=== PATIENT | female | born 1985 | race Caucasian/White ===

== ENCOUNTER 2019-07-16 09:45 | Emergency (ER) | payer OTHER ==
[~2019-07-16] VITALS: Ht 170.2 cm; Wt 68.5 kg
[2019-07-16 10:36] LABS: BASO % 0 % (0-3); EOS # 0.2 x10^3/uL (0.0-0.7); EOS % 3 % (0-3); HEMATOCRIT 36.8 % (36.0-47.0); HEMOGLOBIN 12.4 g/dL (12.0-15.5); LYMPH # 1.4 x10^3/uL (1.0-4.8); LYMPH % 25 % (24-48); MEAN CORPUSCULAR HEMOGLOBIN 30 pg (25-35); MEAN CORPUSCULAR HGB CONC 34 g/dL (31-37); MEAN CORPUSCULAR VOLUME 88 fL (79-100); MONO # 0.3 x10^3/uL (0.0-1.1); MONO % 6 % (0-9); NEUT # 3.9 x10^3uL (1.8-7.7); NEUT % 67 % (31-73); PLATELET COUNT 270 x10^3/uL (140-400); RED BLOOD COUNT 4.19 x10^6/uL (3.50-5.40); RED CELL DISTRIBUTION WIDTH 12.9 % (11.5-14.5); WHITE BLOOD COUNT 5.8 x10^3/uL (4.0-11.0)
[2019-07-16 10:49] LABS: ALBUMIN 4.3 g/dL (3.4-5.0); ALBUMIN/GLOBULIN RATIO 1.4 (1.0-1.7); CALCIUM 9.4 mg/dL (8.5-10.1); CREATININE 0.9 mg/dL (0.6-1.0); GFR 72.6; POTASSIUM 4.3 mmol/L (3.5-5.1); TOTAL BILIRUBIN 0.4 mg/dL (0.2-1.0); TOTAL PROTEIN 7.4 g/dL (6.4-8.2)
--- NOTE | 2019-07-16 11:02 | RAD ---
Examination: Ultrasound abdomen limited HISTORY: History of right upper quadrant pain COMPARISON: None available. FINDINGS: The liver length measures 16.4 cm in length. Gallbladder wall thickness measures 1.5 mm. Tiny echogenicities identified abutting the wall of the gallbladder probably polyps the largest measuring 3 mm. There is a 1.5 cm and 1.0 cm round echogenicities identified in the liver probably hepatic hemangiomas The right kidney measures 11.2 cm in length. The aorta, IVC within normal limits of dimension. IMPRESSION: 1. Tiny gallbladder polyps identified in the gallbladder. 2. Small round echogenicities identified in the liver probably hemangiomas. Electronically signed by: Erwin Barron MD (07/16/2019 10:59 AM) [facility]
[2019-07-16 11:27] VITALS: BP 108/64
--- NOTE | 2019-07-16 11:34 | PHYS DOC ---
Past History Past Medical History: No Pertinent History Past Surgical History: Other Additional Past Surgical Histo: LAPROSCOPY; EYE Alcohol Use: Occasionally Drug Use: None Adult General Chief Complaint Chief Complaint: CHEST PAIN HPI HPI Patient is a 33-year-old female presenting with chest pain described as pressure center of the chest radiates to the right upper quadrant went to outside hospital had x-ray and blood work was told everything was fine that she had pleurisy probably but her symptoms are persisting so she is here for another evaluation. No recent travel no hemoptysis no vomiting not worse with eating no prior surgeries history of endometriosis denies trauma. No exertional component really using Flexeril with minimal relief as well as NSAIDs Review of Systems Review of Systems Constitutional: Denies fever or chills [] Eyes: Denies change in visual acuity, redness, or eye pain [] HENT: Denies nasal congestion or sore throat [] Respiratory Musculoskeletal: Denies back pain or joint pain [] Integument: Denies rash or skin lesions [] Neurologic: Denies headache, focal weakness or sensory changes [] Endocrine: Denies polyuria or polydipsia [] All other systems were reviewed and found to be within normal limits, except as documented in this note. Physical Exam Physical Exam Constitutional: Well developed, well nourished, no acute distress, non-toxic appearance. [] HENT: Normocephalic, atraumatic, bilateral external ears normal, oropharynx moist, no oral exudates, nose normal. [] Eyes: PERRLA, EOMI, conjunctiva normal, no discharge. [] Neck: Normal range of motion, no tenderness, supple, no stridor. [] Cardiovascular:Heart rate regular rhythm, no murmur [] Lungs & Thorax: Bilateral breath sounds clear to auscultation [] Abdomen: Bowel sounds normal, soft, mild right upper quadrant tenderness, no mas ses, no pulsatile masses. [] Skin: Warm, dry, no erythema, no rash. [] Back: No tenderness, no CVA tenderness. [] Extremities: No tenderness, no cyanosis, no clubbing, ROM intact, no edema. [] Neurologic: Alert and oriented X 3, normal motor function, normal sensory function, no focal deficits noted. [] Psychologic: Somewhat anxious appearing Current Patient Data Vital Signs Vital Signs Date Time Temp Pulse Resp B/P (MAP) Pulse Ox O2 Delivery O2 Flow Rate FiO2 07/16/19 11:27 61 16 108/64 (79) 97 Room Air 07/16/19 09:50 98.0 Lab Results Laboratory Tests Test 07/16/19 10:20 07/16/19 10:39 White Blood Count 5.8 x10^3/uL (4.0-11.0) Red Blood Count 4.19 x10^6/uL (3.50-5.40) Hemoglobin 12.4 g/dL (12.0-15.5) Hematocrit 36.8 % (36.0-47.0) Mean Corpuscular Volume 88 fL (79-100) Mean Corpuscular Hemoglobin 30 pg (25-35) Mean Corpuscular Hemoglobin Concent 34 g/dL (31-37) Red Cell Distribution Width 12.9 % (11.5-14.5) Platelet Count 270 x10^3/uL (140-400) Neutrophils (%) (Auto) 67 % (31-73) Lymphocytes (%) (Auto) 25 % (24-48) Monocytes (%) (Auto) 6 % (0-9) Eosinophils (%) (Auto) 3 % (0-3) Basophils (%) (Auto) 0 % (0-3) Neutrophils # (Auto) 3.9 x10^3uL (1.8-7.7) Lymphocytes # (Auto) 1.4 x10^3/uL (1.0-4.8) Monocytes # (Auto) 0.3 x10^3/uL (0.0-1.1) Eosinophils # (Auto) 0.2 x10^3/uL (0.0-0.7) Basophils # (Auto) 0.0 x10^3/uL (0.0-0.2) Prothrombin Time 10.5 SEC (9.4-11.4) Prothrombin Time INR 1.0 (0.9-1.1) D-Dimer (Tila) < 0.19 mg/L (0.00-0.50) Sodium Level 139 mmol/L (136-145) Potassium Level 4.3 mmol/L (3.5-5.1) Chloride Level 102 mmol/L (98-107) Carbon Dioxide Level 32 mmol/L (21-32) Anion Gap 5 (6-14) L Blood Urea Nitrogen 18 mg/dL (7-20) Creatinine 0.9 mg/dL (0.6-1.0) Estimated GFR (Cockcroft-Gault) 72.6 BUN/Creatinine Ratio 20 (6-20) Glucose Level 87 mg/dL (70-99) Calcium Level 9.4 mg/dL (8.5-10.1) Total Bilirubin 0.4 mg/dL (0.2-1.0) Aspartate Amino Transferase (AST) 21 U/L (15-37) Alanine Aminotransferase (ALT) 18 U/L (14-59) Alkaline Phosphatase 48 U/L (46-116) Troponin I Quantitative < 0.017 ng/mL (0-0.055) Total Protein 7.4 g/dL (6.4-8.2) Albumin 4.3 g/dL (3.4-5.0) Albumin/Globulin Ratio 1.4 (1.0-1.7) Lipase 151 U/L (73-393) POC Urine HCG, Qualitative hcg negative (Negative) EKG EKG []EKG shows a normal sinus rhythm nonspecific changes inferiorly but no STEMI Radiology/Procedures Radiology/Procedures [] Impressions: IMPRESSION: 1. Tiny gallbladder polyps identified in the gallbladder. 2. Small round echogenicities identified in the liver probably hemangiomas. Electronically signed by: Erwin Barron MD (07/16/2019 10:59 AM) [place] [id number] DICTATED AND SIGNED BY: ERWIN BARRON MD DATE: 07/16/19 1059 CC: MARU DAVID MD; PCP,UNKNOWN ~ I told the patient about the need for follow-up with the polyps repeat ultrasound in approximately one year Course & Med Decision Making Course & Med Decision Making Pertinent Labs and Imaging studies reviewed. (See chart for details) []ER workup was negative patient is very well-appearing suspect nonspecific chest pain perhaps anxiety perhaps pleurisy recommended continue symptomatically treatment return impressions discussed voiced understanding Her heart score is a 0 this does not sound like cardiac chest pain to me troponin negative after greater than 2 days of symptoms Dragon Disclaimer Dragon Disclaimer This electronic medical record was generated, in whole or in part, using a voice recognition dictation system. Departure Departure: Impression: Primary Impression: Chest pain Disposition: HOME, SELF-CARE Condition: STABLE Patient Instructions: Chest Pain (Nonspecific), Lieb-dl-Eexo MARU DAVID MD Jul 16, 2019 11:34
--- NOTE | 2019-07-16 12:13 | EKG ---
[address] [address] Test Date: 2019-07-16 Test Time: 10:04:54 Pat Name: ABHAY JARRETT Department: Room: Gender: F [employer]: : 1985 Requested By: MARU DAVID Order Number: [id number] Reading MD: Measurements Intervals [place] Rate: 77 P: 24 IA: 118 QRS: 31 QRSD: 90 T: -14 QT: 402 QTc: 457 Interpretive Statements SINUS RHYTHM T ABNORMALITY IN INFERIOR LEADS ABNORMAL ECG RI6.01 No previous ECG available for comparison
== END 2019-07-16 11:36 | disposition home or self-care (01) ==
LOC: ER 09:45
DX: R07.89 Other chest pain (principal); R10.11 Right upper quadrant pain
CPT/HCPCS: 36415; 76705; 80053; 81025; 83690; 84484; 85025; 85379; 85610; 93005; 99285

== ENCOUNTER 2019-08-14 07:21 | Emergency (ER) | payer OTHER ==
[~2019-08-14] VITALS: Ht 170.2 cm; Wt 76.2 kg
[2019-08-14 07:43] VITALS: BP 131/89
--- NOTE | 2019-08-14 07:54 | PHYS DOC ---
Past History Past Medical History: No Pertinent History Past Surgical History: Other Additional Past Surgical Histo: LAPROSCOPY; EYE Smoking: Non-smoker Alcohol Use: Occasionally Drug Use: None Adult General Chief Complaint Chief Complaint: ABDOMINAL PAIN IN HPI HPI Patient is a 33-year-old female presents with upper and lower abdominal pain and cramping. This started last night. Has been intermittent. No vaginal bleeding or discharge. Patient is concerned because she had similar discomfort when she miscarried in November 2018, of a 10 week old fetus. She is 3 para 1011. She reports her blood type is O+. No prior history of broken. Her first was conceived by in vitro fertilization. Her miscarriage was conceived by natural conception as is this one. She denies any trauma. Denies any nausea or vomiting. Denies any dysuria or hematuria. Denies any vaginal bleeding or discharge. Symptoms are mild to moderate in intensity at their worst.[] Review of Systems Review of Systems Constitutional: Denies fever or chills [] Eyes: Denies change in visual acuity, redness, or eye pain [] HENT: Denies nasal congestion or sore throat [] Respiratory: Denies cough or shortness of breath [] Cardiovascular: No additional information not addressed in HPI [] GI: See history of present illness[] : Denies dysuria or hematuria, see history of present illness [] Musculoskeletal: Denies back pain or joint pain [] Integument: Denies rash or skin lesions [] Neurologic: Denies headache, focal weakness or sensory changes [] Endocrine: Denies polyuria or polydipsia [] All other systems were reviewed and found to be within normal limits, except as documented in this note. Physical Exam Physical Exam Constitutional: Well developed, well nourished, no acute distress, non-toxic appearance. [] HENT: Normocephalic, atraumatic, bilateral external ears normal, oropharynx moist, no oral exudates, nose normal. [] Eyes: PERRLA, EOMI, conjunctiva normal, no discharge. [] Neck: Normal range of motion, no tenderness, supple, no stridor. [] Cardiovascular:Heart rate regular rhythm, no murmur [] Lungs & Thorax: Bilateral breath sounds clear to auscultation [] Abdomen: Bowel sounds normal, soft, no tenderness, no masses, no pulsatile masses. Pelvic exam performed with porcelain finisher: External genitalia, [place]'s glands, urethra, and bartholin's glands: normal, no erythema, no lesions. Vaginal vault: No blood, no lesions. Cervix: Parous os, closed cervix, no blood. [] Skin: Warm, dry, no erythema, no rash. [] Back: No tenderness, no CVA tenderness. [] Extremities: No tenderness, no cyanosis, no clubbing, ROM intact, no edema. [] Neurologic: Alert and oriented X 3, normal motor function, normal sensory function, no focal deficits noted. [] Psychologic: Affect normal, judgement normal, mood normal. [] Current Patient Data Lab Results Laboratory Tests Test 08/14/19 07:41 08/14/19 08:06 Urine Collection Type Void Urine Color Yellow Urine Clarity Hazy Urine pH 6.5 Urine Specific [place] 1.020 Urine Protein Neg Urine Glucose (UA) Neg mg/dL Urine Ketones (Stick) Neg mg/dL Urine Blood Neg Urine Nitrite Neg Urine Bilirubin Neg Urine Urobilinogen Dipstick 0.2 mg/dL Urine Leukocyte Esterase Trace Urine RBC 1-2 /HPF Urine WBC 1-4 /HPF Urine Squamous Epithelial Cells Mod /LPF Urine Bacteria Many /HPF Urine Mucus Slight /LPF Urine Test Positive White Blood Count 5.0 x10^3/uL Red Blood Count 4.58 x10^6/uL Hemoglobin 13.6 g/dL Hematocrit 40.0 % Mean Corpuscular Volume 87 fL Mean Corpuscular Hemoglobin 30 pg Mean Corpuscular Hemoglobin Concent 34 g/dL Red Cell Distribution Width 12.7 % Platelet Count 267 x10^3/uL Neutrophils (%) (Auto) 58 % Lymphocytes (%) (Auto) 33 % Monocytes (%) (Auto) 6 % Eosinophils (%) (Auto) 2 % Basophils (%) (Auto) 0 % Neutrophils # (Auto) 2.9 x10^3uL Lymphocytes # (Auto) 1.7 x10^3/uL Monocytes # (Auto) 0.3 x10^3/uL Eosinophils # (Auto) 0.1 x10^3/uL Basophils # (Auto) 0.0 x10^3/uL Maternal Serum HCG Beta Subunit 1848 mIU/mL Sodium Level 137 mmol/L Potassium Level 3.8 mmol/L Chloride Level 100 mmol/L Carbon Dioxide Level 26 mmol/L Anion Gap 11 Blood Urea Nitrogen 13 mg/dL Creatinine 0.9 mg/dL Estimated GFR (Cockcroft-Gault) 72.6 BUN/Creatinine Ratio 14 Glucose Level 91 mg/dL Calcium Level 9.2 mg/dL Total Bilirubin 0.5 mg/dL Aspartate Amino Transf (AST/SGOT) 19 U/L Alanine Aminotransferase (ALT/SGPT) 18 U/L Alkaline Phosphatase 44 U/L Total Protein 8.1 g/dL Albumin 4.4 g/dL Albumin/Globulin Ratio 1.2 Lipase 198 U/L EKG EKG [] Radiology/Procedures Radiology/Procedures PROCEDURE: OB <14 WKS W/TV OB ultrasound less than 14 weeks to include transabdominal and transvaginal imaging 08/14/2019 CLINICAL HISTORY: First trimester with lower abdominal/pelvic pain. TECHNIQUE: Using the distended urinary bladder as a sonographic window, a real-time ultrasound examination of the pelvis was performed. Additionally in an attempt to better evaluate the uterus and adnexa, a transvaginal ultrasound study was performed. Multiple images were obtained. FINDINGS: The uterus is within normal limits in size and echogenicity. It measures 8.0 x 5.4 x 4.9 cm in longitudinal, transverse, and AP dimensions. The endometrial echo complex is thickened measuring 2 cm. No gestational sac is seen within the endometrial canal. No focal abnormality of the uterus is noted. The right ovary is mildly enlarged. It measures 5.1 x 2.8 x 3.0 cm in size. Within the right ovary an oval-shaped structure with internal echoes is seen which measures 2.5 cm in greatest diameter. This likely represents a hemorrhagic cyst. The left ovary measures 3.5 x 2.6 x 1.7 cm in size. No free fluid is noted. IMPRESSION: 1. No IUP is seen. 2.5 cm probable hemorrhagic cyst is involving the right ovary. 2. These ultrasound findings could be seen with very early IUP, missed spontaneous or possibly due to an occult ectopic . Clinical correlation and correlation with the patient's serial beta hCG level is recommended.[] Course & Med Decision Making Course & Med Decision Making Pertinent Labs and Imaging studies reviewed. (See chart for details) ED course: Patient arrived, was placed in bed, and tolerated exam well. Ultrasound was performed. After return of laboratory and imaging findings, these were discussed with the patient who voiced understanding. All questions were answered. She was discharged in improved condition. Medical decision making: Patient with an early , quantitative of 1848, and no IUP noted. At this point its abdominal pain with possibility of threatened miscarriage. There is no evidence of an ectopic . No evidence of Rh mismatch. Patient does have bacteria noted in her urine and so we'll cover for this. No evidence of pancreatitis nor other intra-abdominal significant pathology at this time.[] Dragon Disclaimer Dragon Disclaimer This electronic medical record was generated, in whole or in part, using a voice recognition dictation system. Departure Departure: Impression: Primary Impression: Abdominal pain during in first trimester Disposition: HOME, SELF-CARE Condition: IMPROVED Referrals: RAQUEL DAVIS PA-C (PCP) Follow-up in 2 days Patient Instructions: Abdominal Pain During Additional Instructions: Follow-up with your regular doctor in 2 days. Your quantitative test level was 1848 today. This number should double in 2-3 days during a normal . Unfortunately the level is too low today to see if there is a fetus in the uterus. There is no evidence of an ectopic / and the tubes. Return to the ER if worsening pain, bleeding, or any other concerns. There is bacteria in your urine. There is no evidence of a urinary tract infection. It is being treated because bacteria in the urine may trigger a miscarriage. Scripts Nitrofurantoin Monohyd/M-Cryst (MACROBID 100 MG CAPSULE) 100 Mg Capsule 1 CAP PO BID for bacteriuria, #20 CAP Prov: KHUSHI NORTH DO 08/14/19 KHUSHI NORTH DO Aug 14, 2019 07:54
[2019-08-14 08:13] LABS: BILIRUBIN,URINE NEG (NEG); CLARITY,URINE HAZY; COLOR,URINE YELLOW; GLUCOSE,URINE NEG (NEG); NITRITE,URINE NEG (NEG); UROBILINOGEN,URINE 0.2 mg/dL (0.2 mg/dL)
[2019-08-14 08:14] LABS: BACTERIA,URINE MANY /HPF (0-FEW); SQUAMOUS EPITHELIAL CELL,UR MOD /LPF
[2019-08-14 08:45] LABS: BASO % 0 % (0-3); EOS # 0.1 x10^3/uL (0.0-0.7); EOS % 2 % (0-3); HEMOGLOBIN 13.6 g/dL (12.0-15.5); LYMPH # 1.7 x10^3/uL (1.0-4.8); LYMPH % 33 % (24-48); MEAN CORPUSCULAR HEMOGLOBIN 30 pg (25-35); MEAN CORPUSCULAR HGB CONC 34 g/dL (31-37); MEAN CORPUSCULAR VOLUME 87 fL (79-100); MONO # 0.3 x10^3/uL (0.0-1.1); MONO % 6 % (0-9); NEUT # 2.9 x10^3uL (1.8-7.7); NEUT % 58 % (31-73); PLATELET COUNT 267 x10^3/uL (140-400); RED BLOOD COUNT 4.58 x10^6/uL (3.50-5.40); RED CELL DISTRIBUTION WIDTH 12.7 % (11.5-14.5)
[2019-08-14 08:53] LABS: ALBUMIN 4.4 g/dL (3.4-5.0); ALBUMIN/GLOBULIN RATIO 1.2 (1.0-1.7); CALCIUM 9.2 mg/dL (8.5-10.1); CREATININE 0.9 mg/dL (0.6-1.0); GFR 72.6; POTASSIUM 3.8 mmol/L (3.5-5.1); TOTAL BILIRUBIN 0.5 mg/dL (0.2-1.0); TOTAL PROTEIN 8.1 g/dL (6.4-8.2)
[2019-08-14 08:55] LABS: U PREG PATIENT POSITIVE (NEG)
--- NOTE | 2019-08-14 08:58 | RAD ---
OB ultrasound less than 14 weeks to include transabdominal and transvaginal imaging 08/14/2019 CLINICAL HISTORY: First trimester with lower abdominal/pelvic pain. TECHNIQUE: Using the distended urinary bladder as a sonographic window, a real-time ultrasound examination of the pelvis was performed. Additionally in an attempt to better evaluate the uterus and adnexa, a transvaginal ultrasound study was performed. Multiple images were obtained. FINDINGS: The uterus is within normal limits in size and echogenicity. It measures 8.0 x 5.4 x 4.9 cm in longitudinal, transverse, and AP dimensions. The endometrial echo complex is thickened measuring 2 cm. No gestational sac is seen within the endometrial canal. No focal abnormality of the uterus is noted. The right ovary is mildly enlarged. It measures 5.1 x 2.8 x 3.0 cm in size. Within the right ovary an oval-shaped structure with internal echoes is seen which measures 2.5 cm in greatest diameter. This likely represents a hemorrhagic cyst. The left ovary measures 3.5 x 2.6 x 1.7 cm in size. No free fluid is noted. IMPRESSION: 1. No IUP is seen. 2.5 cm probable hemorrhagic cyst is involving the right ovary. 2. These ultrasound findings could be seen with very early IUP, missed spontaneous or possibly due to an occult ectopic . Clinical correlation and correlation with the patient's serial beta hCG level is recommended. Electronically signed by: Dion Jacobs MD (08/14/2019 8:55 AM) [facility]
[2019-08-14] MEDS ORDERED: NITR100C62 PO (09:57)
[2019-08-15] MEDS ORDERED: ACET325T9 PO (08:36)
== END 2019-08-14 10:01 | disposition home or self-care (01) ==
LOC: ER 07:21
DX: O26.891 Other specified pregnancy related conditions, first trimester (principal); R10.10 Upper abdominal pain, unspecified; R10.30 Lower abdominal pain, unspecified; R10.2 Pelvic and perineal pain; Z3A.01 Less than 8 weeks gestation of pregnancy
CPT/HCPCS: 36415; 76801; 76817; 80053; 81001; 81025; 83690; 84702; 85025; 86900; 86901; 87086; 87491; 87591; 99285; Q0111

== ENCOUNTER 2019-08-15 06:45 | Emergency (ER) | payer OTHER ==
[~2019-08-15] VITALS: Ht 322.6 cm; Wt 76.2 kg
[~2019-08-15 06:45] MED LIST: NITR100C62 PO
[2019-08-15 06:50] VITALS: BP 137/71
--- NOTE | 2019-08-15 07:12 | PHYS DOC ---
Past History Past Medical History: Endometriosis, Other Additional Past Medical Histor: IVF Past Surgical History: Other Additional Past Surgical Histo: ENDOSCOPIC SURGERY Smoking: Non-smoker Alcohol Use: None Drug Use: None Adult General Chief Complaint Chief Complaint: ABDOMINAL PAIN IN HPI HPI Patient is a 33-year-old female presents with lower abdominal pain. This started suddenly at approximately 550 this morning. Patient is known to be , approximately 4 weeks. She was seen by me due to lower abdominal cramping, in the emergency department, yesterday. She has taken 2 doses of Macrobid for the bacteriuria that was noted. Denies any back or flank pain. Her pain this morning was sharp and severe. It has improved over time. No vaginal bleeding or di scharge. She had an ultrasound performed yesterday in the emergency department that did not reveal a in the uterus, nor evidence of an ectopic . She had a quantitative level which was 1848 yesterday. No nausea or vomiting. No blood in the urine. No dysuria.[] Review of Systems Review of Systems Constitutional: Denies fever or chills [] Eyes: Denies change in visual acuity, redness, or eye pain [] HENT: Denies nasal congestion or sore throat [] Respiratory: Denies cough or shortness of breath [] Cardiovascular: No chest pain or palpitations[] GI: Denies abdominal pain, nausea, vomiting, bloody stools or diarrhea [] : Denies dysuria or hematuria, see history of present illness [] Musculoskeletal: Denies back pain or joint pain [] Integument: Denies rash or skin lesions [] Neurologic: Denies headache, focal weakness or sensory changes [] Endocrine: Denies polyuria or polydipsia [] All other systems were reviewed and found to be within normal limits, except as documented in this note. Allergies Allergies Allergies Coded Allergies Type Severity Reaction Last Updated Verified Penicillins Allergy Unknown 08/14/19 Yes guaifenesin Allergy Unknown 08/14/19 Yes phenylephrine Allergy Unknown 08/14/19 Yes Physical Exam Physical Exam Constitutional: Well developed, well nourished, no acute distress, non-toxic appearance. [] HENT: Normocephalic, atraumatic, bilateral external ears normal, oropharynx moist, no oral exudates, nose normal. [] Eyes: PERRLA, EOMI, conjunctiva normal, no discharge. [] Neck: Normal range of motion, no tenderness, supple, no stridor. [] Cardiovascular:Heart rate regular rhythm, no murmur [] Lungs & Thorax: Bilateral breath sounds clear to auscultation [] Abdomen: Bowel sounds normal, soft, no tenderness, no masses, no pulsatile masses. [] Skin: Warm, dry, no erythema, no rash. [] Back: No tenderness, no CVA tenderness. [] Extremities: No tenderness, no cyanosis, no clubbing, ROM intact, no edema. [] Neurologic: Alert and oriented X 3, normal motor function, normal sensory function, no focal deficits noted. [] Psychologic: Affect normal, judgement normal, mood normal. [] Current Patient Data Vital Signs Vital Signs Date Time Temp Pulse Resp B/P (MAP) Pulse Ox O2 Delivery O2 Flow Rate FiO2 08/15/19 06:50 97.8 72 18 100 Room Air EKG EKG [] Radiology/Procedures Radiology/Procedures PROCEDURE: OB <14 WKS W/TV OB <14 WKS W/TV History: Severe right pelvic pain. Positive test. Comparison: August 14, 2019. Technique: Grayscale and color Doppler imaging of the pelvis was performed using transabdominal and transvaginal technique. Findings: The uterus measures 9 x 6 x 5 cm in length. Intrauterine gestational sac measures 0.4 cm. Estimated gestational age by ultrasound 5 weeks 1 day. No yolk sac or pole is identified. Right ovary measures 4.4 x 2.6 x 2.5 cm. Complicated dominant right ovarian follicle, similar compared to prior. Left ovary measures 3.3 x 2.1 x 2.2 cm and is unremarkable. No adnexal masses are seen. IMPRESSION: 1. Small intrauterine gestational sac with estimated age 5 weeks 1 day. Recommend short-term interval ultrasound follow-up and correlation with patient's serial beta-hCG levels. 2. Complicated right ovarian follicle, unchanged.[] Course & Med Decision Making Course & Med Decision Making Pertinent Labs and Imaging studies reviewed. (See chart for details) ED course: Patient arrived, was placed in bed, and tolerated exam well. Ultrasound was performed along with laboratory testing. These results were discussed with the patient who voiced understanding. Her pain improved without any intervention in the emergency department. All questions were answered. She was discharged in improved condition. Medical decision making: Patient now appears to have an IUP that was not visible on yesterday's ultrasound. No evidence of an ectopic. Review of yesterday's records shows that there may be a hemorrhagic cyst on the right side and that may be part of what caused today's discomfort. No evidence of torsion. The bacteria in the urine with possibly contaminated specimen is still present. We'll have patient follow up for this.[] Dragon Disclaimer Dragon Disclaimer This electronic medical record was generated, in whole or in part, using a voice recognition dictation system. Departure Departure: Impression: Primary Impression: Abdominal pain affecting Disposition: HOME, SELF-CARE Condition: IMPROVED Referrals: RAQUEL DAVIS PA-C (PCP) Follow-up tomorrow Patient Instructions: Abdominal Pain During Additional Instructions: Follow-up with your regular doctor tomorrow. Take medications as prescribed. Your quantitative level was 2593 today. This is going up compared with yesterday. Return to the ER if worsening pain or any other concerns. Scripts Acetaminophen (TYLENOL) 325 Mg Tablet 1-2 TAB PO QID for PAIN, #60 TAB 0 Refills Prov: KHUSHI NORTH DO 08/15/19 KHUSHI NORTH DO Aug 15, 2019 07:12
[2019-08-15 07:33] LABS: BASO % 1 % (0-3); EOS # 0.1 x10^3/uL (0.0-0.7); EOS % 2 % (0-3); HEMATOCRIT 38.1 % (36.0-47.0); HEMOGLOBIN 13.1 g/dL (12.0-15.5); LYMPH # 1.2 x10^3/uL (1.0-4.8); LYMPH % 23 % (24-48); MEAN CORPUSCULAR HEMOGLOBIN 30 pg (25-35); MEAN CORPUSCULAR HGB CONC 35 g/dL (31-37); MEAN CORPUSCULAR VOLUME 87 fL (79-100); MONO # 0.3 x10^3/uL (0.0-1.1); MONO % 6 % (0-9); NEUT # 3.6 x10^3uL (1.8-7.7); NEUT % 69 % (31-73); PLATELET COUNT 248 x10^3/uL (140-400); RED CELL DISTRIBUTION WIDTH 12.7 % (11.5-14.5); WHITE BLOOD COUNT 5.2 x10^3/uL (4.0-11.0)
[2019-08-15 07:41] LABS: BILIRUBIN,URINE NEG (NEG); CLARITY,URINE HAZY; COLOR,URINE AMBER; GLUCOSE,URINE NEG (NEG); NITRITE,URINE NEG (NEG); UROBILINOGEN,URINE 0.2 mg/dL (0.2 mg/dL)
[2019-08-15 07:42] LABS: RBC,URINE OCC /HPF (0-2)
[2019-08-15 07:43] LABS: BACTERIA,URINE MOD /HPF (0-FEW); SQUAMOUS EPITHELIAL CELL,UR MANY /LPF
[2019-08-15 07:45] LABS: ALBUMIN 4.1 g/dL (3.4-5.0); ALBUMIN/GLOBULIN RATIO 1.2 (1.0-1.7); CALCIUM 9.3 mg/dL (8.5-10.1); CREATININE 0.9 mg/dL (0.6-1.0); GFR 72.6; TOTAL BILIRUBIN 0.5 mg/dL (0.2-1.0); TOTAL PROTEIN 7.4 g/dL (6.4-8.2)
--- NOTE | 2019-08-15 08:26 | RAD ---
OB <14 WKS W/TV History: Severe right pelvic pain. Positive test. Comparison: August 14, 2019. Technique: Grayscale and color Doppler imaging of the pelvis was performed using transabdominal and transvaginal technique. Findings: The uterus measures 9 x 6 x 5 cm in length. Intrauterine gestational sac measures 0.4 cm. Estimated gestational age by ultrasound 5 weeks 1 day. No yolk sac or pole is identified. Right ovary measures 4.4 x 2.6 x 2.5 cm. Complicated dominant right ovarian follicle, similar compared to prior. Left ovary measures 3.3 x 2.1 x 2.2 cm and is unremarkable. No adnexal masses are seen. IMPRESSION: 1. Small intrauterine gestational sac with estimated age 5 weeks 1 day. Recommend short-term interval ultrasound follow-up and correlation with patient's serial beta-hCG levels. 2. Complicated right ovarian follicle, unchanged. Electronically signed by: Fili Branch DO (08/15/2019 8:24 AM) [facility]
[2019-08-15] MEDS ORDERED: ACET325T9 PO (08:36)
== END 2019-08-15 08:38 | disposition home or self-care (01) ==
LOC: ER 06:45
DX: O26.891 Other specified pregnancy related conditions, first trimester (principal); R10.2 Pelvic and perineal pain; Z3A.01 Less than 8 weeks gestation of pregnancy; Z88.0 Allergy status to penicillin; Z88.8 Allergy status to other drugs, medicaments and biological substances
CPT/HCPCS: 36415; 76801; 76817; 80053; 81001; 84702; 85025; 87086; 99285-25

== ENCOUNTER 2019-10-09 00:29 | Emergency (ER) | payer OTHER ==
[~2019-10-09] VITALS: Ht 322.6 cm; Wt 77.2 kg
[~2019-10-09 00:29] MED LIST changes: +ACET325T9 PO
--- NOTE | 2019-10-09 00:35 | PHYS DOC ---
Past History Past Medical History: Endometriosis, Other Additional Past Medical Histor: IVF Past Surgical History: Other Additional Past Surgical Histo: ENDOSCOPIC SURGERY Smoking: Non-smoker Alcohol Use: None Drug Use: None Adult General Chief Complaint Chief Complaint: ".. I ve been having some upper back pain... between my shoulders.. I am 13 weeks by Ulttrasound at 9 weeks.. " I have been lifting my little one a lot..." HPI HPI Patient is a 33 year old female dependent who presents with above hx and complaints of mid back pain. Pain appears to be localized in the paraspinal muscle area. There is some tenderness on the lower trapezius in this area. There is no pain or pleurisy complaints with deep breaths or cough. No history of cough or trauma to induced the back pain. No history of fever or chills. No history immunosuppression. No history of IV drug use. No history of cancer. Bakari cai has not taken any Tylenol at home. Patient is 3 term 11 miscarriage. Ultrasound at 9 weeks showed intrauterine . Patient has used IVF. No history of prior back pain. Patient is on . Patient has been constipated with the prenatals. Patient follows at [facility] in women's health clinic. No history of abuse given. Review of Systems Review of Systems Constitutional: Denies fever or chills [] Eyes: Denies change in visual acuity, redness, or eye pain [] HENT: Denies nasal congestion or sore throat [] Respiratory: Denies cough or shortness of breath [] Cardiovascular: No additional information not addressed in HPI [] GI: Denies abdominal pain, nausea, vomiting, bloody stools or diarrhea [] :Complaints of dysuria Musculoskeletal: Complaints of mid upper back pain Integument: Denies rash or skin lesions [] Neurologic: Denies headache, focal weakness or sensory changes [] Endocrine: Denies polyuria or polydipsia [] All other systems were reviewed and found to be within normal limits, except as documented in this note. Family History Family History Noncontributory Current Medications Current Medications See nursing for home meds Allergies Allergies Allergies Coded Allergies Type Severity Reaction Last Updated Verified Penicillins Allergy Unknown 08/14/19 Yes guaifenesin Allergy Unknown 08/14/19 Yes phenylephrine Allergy Unknown 08/14/19 Yes Physical Exam Physical Exam Constitutional: Well developed, well nourished, moderate acute distress, non- toxic appearance. [] HENT: Normocephalic, atraumatic, bilateral external ears normal, oropharynx moist, no oral exudates, nose normal. [] Eyes: PERRLA, EOMI, conjunctiva normal, no discharge. [] Neck: Normal range of motion, no tenderness, supple, no stridor. [] Cardiovascular:Heart rate regular rhythm, no murmur [] Lungs & Thorax: Bilateral breath sounds clear to auscultation [] Abdomen: Bowel sounds normal, soft, no tenderness, no masses, no pulsatile masses. [] Gravid. Skin: Warm, dry, no erythema, no rash. [] Back: No low back tenderness, no CVA tenderness. [] Upper mid back muscle spasm and tenderness. No midline tenderness. Extremities: No tenderness, no cyanosis, no clubbing, ROM intact, no edema. [] Neurologic: Alert and oriented X 3, normal motor function, normal sensory function, no focal deficits noted. []DTRs +2 patella. No ankle edema. Ambulatory without problems.. No cording appreciated Psychologic: Affect anxious, judgement normal, mood normal. [] EKG EKG [] Radiology/Procedures Radiology/Procedures [] Course & Med Decision Making Course & Med Decision Making Pertinent Labs and Imaging studies reviewed. (See chart for details) Ice packs as needed. Massage. Continue take vitamins. May take Tylenol for pain. For marked pain may take a Percocet. Percocet may increase her constipation. If taking Percocet may need to take milk of magnesia 30 mL a day. Follow-up primary care. Return if any concerns. [Impression: 1. Back Pain- possible skeletal-muscle strain 2. Gravid estimated 13 weeks intrauterine 3. Beta hCG is 69, 558] 4. Blood type O+ Dragon Disclaimer Dragon Disclaimer This electronic medical record was generated, in whole or in part, using a voice recognition dictation system. Departure Departure: Disposition: 01 HOME/RESIDENCE PRIOR TO ADM Condition: STABLE Referrals: PCP,UNKNOWN (PCP) Scripts Oxycodone Hcl/Acetaminophen (PERCOCET 5-325 MG TABLET ) 1 Each Tablet 1 TAB PO PRN QID PRN for PAIN MDD 4 Tablet(s) for 30 Days, #120 TAB 0 Refills Prov: XIN CENTENO MD 10/09/19 Magnesium Hydroxide (MILK OF MAGNESIA) 2,400 Mg/10 Ml Oral.susp 2400 MG PO DAILY PRN for CONSTIPATION, #120 LIQUID Prov: XIN CENTENO MD 10/09/19 Dragzac Disclaimer This chart was dictated in whole or in part using Voice Recognition software in a busy, high-work load, and often noisy Emergency Department environment. It may contain unintended and wholly unrecognized errors or omissions. Dragon Disclaimer This chart was dictated in whole or in part using Voice Recognition software in a busy, high-work load, and often noisy Emergency Department environment. It may contain unintended and wholly unrecognized errors or omissions. XIN CENTENO MD Oct 09, 2019 00:35
[2019-10-09] MEDS ORDERED: IV RINGERS SOLUTION,LACTATED 1,000 ML IV SCH (00:45)
[2019-10-09] MEDS ORDERED: ONDANSETRON PF 4 MG/2 ML VIAL. IVP ONE (00:45)
[2019-10-09] MEDS ORDERED: FAMOTIDINE 20 MG/2 ML VIAL IVP ONE (00:45)
[2019-10-09] MEDS ORDERED: ACETAMINOPHEN 500 MG TABLET PO ONE (01:00)
[2019-10-09 01:38] LABS: BARBITURATES NEG (NEG); BENZODIAZEPINES NEG (NEG); CANNABINOIDS NEG (NEG); COCAINE NEG (NEG); METHADONE NEG (NEG); OPIATES NEG (NEG); PHENCYCLIDINE NEG (NEG)
[2019-10-09 01:39] LABS: AMPHETAMINE/METHAMPHETAMINE NEG (NEG)
[2019-10-09 01:42] LABS: BACTERIA,URINE FEW /HPF (0-FEW); BILIRUBIN,URINE NEG (NEG); CLARITY,URINE CLEAR; COLOR,URINE STRAW; GLUCOSE,URINE NEG (NEG); NITRITE,URINE NEG (NEG); RBC,URINE 0 /HPF (0-2); SQUAMOUS EPITHELIAL CELL,UR FEW /LPF; UROBILINOGEN,URINE 0.2 mg/dL (0.2 mg/dL); WBC,URINE 0 /HPF (0-4)
[2019-10-09] MEDS ORDERED: PNV91TAB6 PO (01:53)
[2019-10-09] MEDS ORDERED: calcium (01:54)
[2019-10-09] MEDS ORDERED: vitamin D (01:54)
[2019-10-09] MEDS ORDERED: zofran (01:54)
[2019-10-09 02:09] LABS: ALBUMIN 3.4 g/dL (3.4-5.0); CALCIUM 8.7 mg/dL (8.5-10.1); CREATININE 0.6 mg/dL (0.6-1.0); DIRECT BILIRUBIN 0.1 mg/dL (0.0-0.2); GFR 115.9; POTASSIUM 3.7 mmol/L (3.5-5.1); TOTAL BILIRUBIN 0.2 mg/dL (0.2-1.0); TOTAL PROTEIN 6.9 g/dL (6.4-8.2); U PREG PATIENT POSITIVE (NEG)
[2019-10-09 02:13] LABS: BASO % 0 % (0-3); EOS # 0.1 x10^3/uL (0.0-0.7); EOS % 2 % (0-3); HEMATOCRIT 35.1 % (36.0-47.0); LYMPH # 2.4 x10^3/uL (1.0-4.8); LYMPH % 25 % (24-48); MEAN CORPUSCULAR HEMOGLOBIN 30 pg (25-35); MEAN CORPUSCULAR HGB CONC 34 g/dL (31-37); MEAN CORPUSCULAR VOLUME 87 fL (79-100); MONO # 0.5 x10^3/uL (0.0-1.1); MONO % 6 % (0-9); NEUT # 6.5 x10^3uL (1.8-7.7); NEUT % 67 % (31-73); PLATELET COUNT 247 x10^3/uL (140-400); RED BLOOD COUNT 4.03 x10^6/uL (3.50-5.40); RED CELL DISTRIBUTION WIDTH 12.9 % (11.5-14.5); WHITE BLOOD COUNT 9.6 x10^3/uL (4.0-11.0)
[2019-10-09] MEDS ORDERED: MAGN2400 PO (02:35)
[2019-10-09] MEDS ORDERED: OXYC1TAB15 PO (02:35)
[2019-10-09] MEDS ORDERED: MAGNESIUM HYDROXIDE 2,400 MG/30 ML ORAL.SUSP. PO ONE (02:45)
[2019-10-09 02:58] VITALS: BP 129/80
== END 2019-10-09 02:58 | disposition home or self-care (01) ==
LOC: ER 00:29
DX: O26.891 Other specified pregnancy related conditions, first trimester (principal); M54.6 Pain in thoracic spine; R30.0 Dysuria; K59.00 Constipation, unspecified; Z3A.13 13 weeks gestation of pregnancy; Z88.0 Allergy status to penicillin; Z88.8 Allergy status to other drugs, medicaments and biological substances
CPT/HCPCS: 36415; 80048; 80076; 80307; 81001; 81025; 84702; 85025; 85610; 85730; 86900; 86901; 96374; 96375; 99285; J2405; J3490; J7120; 96361

== ENCOUNTER 2020-01-17 07:34 | Emergency (ER) | payer OTHER ==
[~2020-01-17] VITALS: Ht 170.2 cm; Wt 87.1 kg
[~2020-01-17 07:34] MED LIST changes: +MAGN24003 PO; +OXYC1TAB15 PO; +PNV91TAB6 PO; +calcium; +vitamin D; +zofran
[2020-01-17] MEDS ORDERED: IV NORMAL SALINE 1,000ML 1,000 ML IV ONE ×2 (08:00→09:00)
--- NOTE | 2020-01-17 08:05 | PHYS DOC ---
Past History Past Medical History: Endometriosis, Other Additional Past Medical Histor: IVF Past Surgical History: Other Additional Past Surgical Histo: ENDOSCOPIC SURGERY; PRK Smoking: Non-smoker Alcohol Use: None Drug Use: None Adult General Chief Complaint Chief Complaint: VOMITING IN HPI HPI 34-year-old female 27 weeks presents with vomiting, cramping, fever, and general ill feelingthe patient has had difficulty with vomiting throughout her . She has had more vomiting the last couple of days. 2 days ago she had a couple episodes of diarrhea. She feels generally crampy and clammy. She had night sweats the last 2 nights. She has measured a fever up to 101. She is concerned about dehydration. She has not had any vaginal bleeding, spotting, or discharge. No known sick contacts, but the patient is [place] a college campus [place]. Review of Systems Review of Systems Constitutional: Fever and chills[] Eyes: Denies change in visual acuity, redness, or eye pain [] HENT: Nasal congestion [] Respiratory: Denies cough or shortness of breath [] Cardiovascular: No additional information not addressed in HPI [] GI: Mild abdominal tightness, nausea, vomiting, diarrhea [] : Denies dysuria or hematuria [] Musculoskeletal: Denies back pain or joint pain [] Integument: Denies rash or skin lesions [] Neurologic: Denies headache, focal weakness or sensory changes [] Endocrine: Denies polyuria or polydipsia [] All other systems were reviewed and found to be within normal limits, except as documented in this note. Current Medications Current Medications Current Medications Medications (Trade) Dose Ordered Sig/[facility] Start Time Stop Time Status Last Admin Dose Admin Ondansetron HCl (Zofran) 4 mg 1X ONCE 01/17/20 08:00 01/17/20 08:01 UNV Sodium Chloride 1,000 ml @ 1,000 mls/hr 1X ONCE 01/17/20 08:00 01/17/20 08:59 Allergies Allergies Allergies Coded Allergies Type Severity Reaction Last Updated Verified Penicillins Allergy Unknown 01/17/20 Yes guaifenesin Allergy Unknown 01/17/20 Yes phenylephrine Allergy Unknown 01/17/20 Yes Physical Exam Physical Exam Constitutional: Well developed, well nourished, no acute distress, non-toxic appearance. [] HENT: Normocephalic, atraumatic, bilateral external ears normal, oropharynx moist, no oral exudates, nose normal. [] Eyes: PERRLA, EOMI, conjunctiva normal, no discharge. [] Neck: Normal range of motion, no tenderness, supple, no stridor. [] Cardiovascular:Heart rate regular rhythm, no murmur [] Lungs & Thorax: Bilateral breath sounds clear to auscultation [] Abdomen: Bowel sounds normal, gravid uterus, no masses, no pulsatile masses. [] Skin: Warm, dry, no erythema, no rash. [] Back: No tenderness, no CVA tenderness. [] Extremities: No tenderness, no cyanosis, no clubbing, ROM intact, no edema. [] Neurologic: Alert and oriented X 3, normal motor function, normal sensory function, no focal deficits noted. [] Psychologic: Affect normal, judgement normal, mood normal. [] EKG EKG [] Radiology/Procedures Radiology/Procedures [] Course & Med Decision Making Course & Med Decision Making Pertinent Labs and Imaging studies reviewed. (See chart for details) The patient's labs are unremarkable except for mild anemia which appears to be similar to baseline. Her urinalysis is suggestive of UTI. I will treat her with Keflex for 3 days. She is stable for discharge at this time. [] Dragon Disclaimer Dragon Disclaimer This electronic medical record was generated, in whole or in part, using a voice recognition dictation system. Departure Departure: Impression: Primary Impression: UTI (urinary tract infection) Additional Impressions: Anemia Dehydration during Nausea and vomiting during Disposition: 01 HOME, SELF-CARE Condition: STABLE Referrals: RAQUEL COULTER DO, [facility] (PCP) Patient Instructions: Nausea and Vomiting, [id number], - Urinary Tract Infection Scripts Cephalexin (KEFLEX) 500 Mg Capsule 1 CAP PO TID for UTI for 5 Days, #15 CAP 0 Refills Prov: AJIT MCKINLEY DO 01/17/20 Problem Qualifiers Primary Impression: UTI (urinary tract infection) Urinary tract infection type: acute cystitis Hematuria presence: with hematuria Qualified Codes: N30.01 - Acute cystitis with hematuria Additional Impressions: Anemia Anemia type: unspecified type Qualified Codes: D64.9 - Anemia, unspecified AJIT MCKINLEY DO Jan 17, 2020 08:05
[2020-01-17 08:11] LABS: BASO % 0 % (0-3); EOS % 1 % (0-3); HEMATOCRIT 34.2 % (36.0-47.0); HEMOGLOBIN 11.9 g/dL (12.0-15.5); LYMPH # 0.8 x10^3/uL (1.0-4.8); LYMPH % 18 % (24-48); MEAN CORPUSCULAR HEMOGLOBIN 31 pg (25-35); MEAN CORPUSCULAR HGB CONC 35 g/dL (31-37); MEAN CORPUSCULAR VOLUME 88 fL (79-100); MONO # 0.6 x10^3/uL (0.0-1.1); MONO % 12 % (0-9); NEUT # 3.2 x10^3uL (1.8-7.7); NEUT % 69 % (31-73); PLATELET COUNT 212 x10^3/uL (140-400); RED CELL DISTRIBUTION WIDTH 13.4 % (11.5-14.5); WHITE BLOOD COUNT 4.6 x10^3/uL (4.0-11.0)
[2020-01-17 08:24] LABS: CALCIUM 7.7 mg/dL (8.5-10.1); CREATININE 0.7 mg/dL (0.6-1.0); GFR 96.4; POTASSIUM 3.6 mmol/L (3.5-5.1)
[2020-01-17 08:26] LABS: ALBUMIN/GLOBULIN RATIO 0.8 (1.0-1.7); TOTAL BILIRUBIN 0.3 mg/dL (0.2-1.0); TOTAL PROTEIN 6.7 g/dL (6.4-8.2)
[2020-01-17 08:29] LABS: INFLUENZA A PATIENT NEGATIVE (NEGATIVE); INFLUENZA B PATIENT NEGATIVE (NEGATIVE)
[2020-01-17] MEDS ORDERED: ONDANSETRON PF 4 MG/2 ML VIAL. IVP ONE (08:30)
[2020-01-17 09:41] LABS: BACTERIA,URINE MOD /HPF (0-FEW); BILIRUBIN,URINE NEG (NEG); CLARITY,URINE HAZY; COLOR,URINE YELLOW; GLUCOSE,URINE NEG (NEG); NITRITE,URINE NEG (NEG); SQUAMOUS EPITHELIAL CELL,UR MANY /LPF
[2020-01-17] MEDS ORDERED: CEPH-264 PO (10:24)
[2020-01-17 11:30] VITALS: BP 117/67
== END 2020-01-17 11:36 | disposition home or self-care (01) ==
LOC: ER 07:34
DX: O23.12 Infections of bladder in pregnancy, second trimester (principal); O99.012 Anemia complicating pregnancy, second trimester; O99.282 Endocrine, nutritional and metabolic diseases complicating pregnancy, second trimester; E86.0 Dehydration; O21.9 Vomiting of pregnancy, unspecified; Z3A.27 27 weeks gestation of pregnancy; Z88.0 Allergy status to penicillin; Z88.8 Allergy status to other drugs, medicaments and biological substances
CPT/HCPCS: 36415; 80053; 81001; 85025; 87086; 87804; 96361; 96374; 99283; J2405; J7030